=== PATIENT | female | born 1960 | race Caucasian/White ===

== ENCOUNTER → 2018-09-01 | Outpatient (CLI) | payer OTHER | LOC: RAD 08:15 | DX: J84.9 Interstitial pulmonary disease, unspecified (principal); R06.02 Shortness of breath ==

== ENCOUNTER → 2020-12-17 | Outpatient (CLI) | payer OTHER | LOC: RAD 12:44 | PROVIDERS: ATTEND Pediatrics | DX: J84.9 Interstitial pulmonary disease, unspecified (principal); J45.50 Severe persistent asthma, uncomplicated; R05 Cough; R06.00 Dyspnea, unspecified ==